=== PATIENT | female | born 2000 | race Asian ===

== ENCOUNTER 2023-11-01 15:19 | Emergency (ER) | payer OTHER ==
[~2023-11-01] VITALS: Ht 154.9 cm; Wt 62.4 kg
[2023-11-01 15:21] VITALS: TEMP 99.1; O2SAT 99
[2023-11-01] MEDS ORDERED: PRENTAB77 PO (15:32)
[2023-11-01 16:34] LABS: BASO # 0.1 10^3/uL (0.0-0.2); BASO % 0.4 % (0.0-1.0); EOS % 0.2 % (0.0-3.0); HEMATOCRIT 37.1 % (36.0-47.0); HEMOGLOBIN 12.3 g/dl (12.0-15.5); LYMPH # 2.1 10^3/uL (1.5-5.0); LYMPH % 16.5 % (24.0-44.0); MEAN CORPUSCULAR HEMOGLOBIN 27.9 pg (27.0-33.0); MEAN CORPUSCULAR HGB CONC 33.2 g/dl (32.0-36.5); MEAN CORPUSCULAR VOLUME 84.1 fl (80.0-96.0); MONO # 0.6 10^3/uL (0.0-0.8); MONO % 4.3 % (2.0-8.0); NEUTROPHILS % 78.2 % (36.0-66.0); PLATELET COUNT, AUTOMATED 290 10^3/uL (150-450); RED BLOOD COUNT 4.41 10^6/uL (4.00-5.40); WHITE BLOOD COUNT 12.8 10^3/uL (4.0-10.0)
[2023-11-01 16:55] LABS: ALBUMIN 3.5 G/DL (3.2-5.2); ALKALINE PHOSPHATASE 63 U/L (46-116); ALT/SGPT 12 U/L (7.0-40); AST/SGOT 12 U/L (<34); BILIRUBIN,TOTAL 0.3 MG/DL (0.3-1.2); BLOOD UREA NITROGEN 7 MG/DL (9-23); CALCIUM LEVEL 9.4 MG/DL (8.5-10.1); CARBON DIOXIDE LEVEL 23 MMOL/L (20-31); CHLORIDE LEVEL 106 MMOL/L (98-107); CREATININE FOR GFR 0.63 MG/DL (0.55-1.30); GLOMERULAR FILTRATION RATE > 60.0 (>60); GLUCOSE, FASTING 74 MG/DL (60-100); POTASSIUM SERUM 3.7 MMOL/L (3.5-5.1); SODIUM LEVEL 135 MMOL/L (136-145); TOTAL PROTEIN 7.2 G/DL (5.7-8.2)
[2023-11-01 17:21] LABS: HCG, SERUM QUANTITATIVE 140986.7 MIU/ML (<4.2)
[2023-11-01 19:08] VITALS: BP 111/62
[2023-11-01] MEDS: NS 1,000 ML IV ONE (19:16)
[2023-11-01] MEDS ORDERED: CEFD300C PO (19:40)
== END 2023-11-01 19:58 | disposition home or self-care (01) ==
LOC: M ED 15:19
DX: O26.811 Pregnancy related exhaustion and fatigue, first trimester (principal); O23.41 Unspecified infection of urinary tract in pregnancy, first trimester; Z79.2 Long term (current) use of antibiotics; Z79.899 Other long term (current) drug therapy; Z3A.09 9 weeks gestation of pregnancy

== ENCOUNTER 2024-01-03 08:39 | Emergency (ER) | payer OTHER ==
[~2024-01-03] VITALS: Ht 154.9 cm; Wt 65.5 kg
[~2024-01-03 08:39] MED LIST: CEFD300C PO; PRENTAB77 PO
[2024-01-03] MEDS: RABIES IMMUNE GLOBULIN 1500 INTERNATIONAL UNIT/5ML VIAL IM.IMMUN ONE (12:14)
[2024-01-03] MEDS: RABIES VACCINE 2.5 INTERNATIONAL UNITS/ML VIAL (RABAVERT) IM.IMMUN ONE (12:15)
[2024-01-03] MEDS ORDERED: AMOX875T2 PO (12:30)
[2024-01-03 12:39] VITALS: BP 111/57; TEMP 97.1; O2SAT 100
== END 2024-01-03 12:43 | disposition home or self-care (01) ==
LOC: M ED 08:39
DX: O26.892 Other specified pregnancy related conditions, second trimester (principal); S61.432A Puncture wound without foreign body of left hand, initial encounter; Z3A.16 16 weeks gestation of pregnancy; W54.0XXA Bitten by dog, initial encounter; Z29.14 Encounter for prophylactic rabies immune globulin; Z20.3 Contact with and (suspected) exposure to rabies; Z79.2 Long term (current) use of antibiotics; Z79.899 Other long term (current) drug therapy; Y92.410 Unspecified street and highway as the place of occurrence of the external cause; Y93.89 Activity, other specified; Y99.9 Unspecified external cause status

== ENCOUNTER 2024-01-06 10:18 | Emergency (ER) | payer OTHER ==
[~2024-01-06] VITALS: Ht 154.9 cm; Wt 65.6 kg
[~2024-01-06 10:18] MED LIST changes: +AMOX875T2 PO
[2024-01-06 10:21] VITALS: BP 114/55; TEMP 97.7; O2SAT 97
[2024-01-06] MEDS: RABIES VACCINE 2.5 INTERNATIONAL UNITS/ML VIAL (RABAVERT) IM ONE (10:36)
== END 2024-01-06 10:40 | disposition home or self-care (01) ==
LOC: M ED 10:18
DX: Z29.14 Encounter for prophylactic rabies immune globulin (principal); Z20.3 Contact with and (suspected) exposure to rabies; Z79.2 Long term (current) use of antibiotics; Z79.899 Other long term (current) drug therapy

== ENCOUNTER 2024-01-10 11:21 | Emergency (ER) | payer OTHER ==
[~2024-01-10] VITALS: Ht 154.9 cm; Wt 65.9 kg
[2024-01-10 11:23] VITALS: TEMP 97.8
[2024-01-10] MEDS: RABIES VACCINE 2.5 INTERNATIONAL UNITS/ML VIAL (RABAVERT) IM ONE (12:27)
[2024-01-10 12:51] VITALS: BP 98/53; O2SAT 98
== END 2024-01-10 12:52 | disposition home or self-care (01) ==
LOC: M ED 11:21
DX: Z29.14 Encounter for prophylactic rabies immune globulin (principal); Z20.3 Contact with and (suspected) exposure to rabies; W54.0XXA Bitten by dog, initial encounter; Z79.2 Long term (current) use of antibiotics; Z79.899 Other long term (current) drug therapy

== ENCOUNTER 2024-01-17 13:12 | Emergency (ER) | payer OTHER ==
[~2024-01-17] VITALS: Ht 154.9 cm; Wt 67.1 kg
[2024-01-17 13:26] VITALS: BP 118/58; TEMP 97.7; O2SAT 98
[2024-01-17] MEDS: RABIES VACCINE 2.5 INTERNATIONAL UNITS/ML VIAL (RABAVERT) IM ONE (14:33)
== END 2024-01-17 14:42 | disposition home or self-care (01) ==
LOC: M ED 13:12
DX: Z29.14 Encounter for prophylactic rabies immune globulin (principal); Z20.3 Contact with and (suspected) exposure to rabies; Z79.2 Long term (current) use of antibiotics; Z79.899 Other long term (current) drug therapy

== ENCOUNTER 2024-03-05 19:54 | Outpatient (CLI) | payer OTHER ==
[~2024-03-05] VITALS: Ht 162.6 cm; Wt 71.3 kg
[2024-03-05 20:09] VITALS: BP 128/76
== END 2024-03-05 21:15 | disposition home or self-care (01) ==
LOC: M LDO 19:54
PROVIDERS: ATTEND Obstetrics & Gynecology
DX: O36.8120 Decreased fetal movements, second trimester, not applicable or unspecified (principal); O36.5920 Maternal care for other known or suspected poor fetal growth, second trimester, not applicable or unspecified; Z3A.26 26 weeks gestation of pregnancy
CPT/HCPCS: 59025; 76815; G0463

== ENCOUNTER 2024-05-09 19:37 | Outpatient (CLI) | payer OTHER ==
[~2024-05-09] VITALS: Ht 154.9 cm; Wt 73.3 kg
[2024-05-09 19:54] VITALS: BP 121/75
[2024-05-09] MEDS ORDERED: OMEG350C PO (20:00)
[2024-05-09] MEDS ORDERED: HOME MED LIST COMPLETE! XX SCH (20:00)
[2024-05-09] MEDS ORDERED: VITA100T59 PO (20:00)
[2024-05-09 22:29] VITALS: BP 121/72
== END 2024-05-09 22:41 | disposition home or self-care (01) ==
LOC: M LDO 19:37
PROVIDERS: ATTEND Obstetrics & Gynecology
DX: O36.5930 Maternal care for other known or suspected poor fetal growth, third trimester, not applicable or unspecified (principal); Z3A.36 36 weeks gestation of pregnancy
CPT/HCPCS: 59025; 96372; G0463